=== PATIENT | male | born 1990 | race Caucasian/White ===

== ENCOUNTER 2022-03-31 19:29 | Emergency (ER) | payer OTHER, SELFPAY ==
[2022-03-31 20:12] VITALS: BP 157/103; PULSE 102; RESP 20; TEMP 37; O2SAT 100
--- NOTE | 2022-03-31 21:53 | PC.NURSE ---
Patient called without answer to be placed in room.
== END 2022-03-31 21:55 | disposition left against medical advice (07) ==
LOC: ANHED 22:04
DX: L02.01 Cutaneous abscess of face (principal)
CPT/HCPCS: 99199

== ENCOUNTER 2022-07-07 01:05 | Emergency (ER) | payer OTHER, SELFPAY ==
--- NOTE | ~2022-07-07 | XR_ITS ---
EXAMINATION: XR ankle RT 2V DATE: 07/07/2022 02:37 INDICATION: Right ankle pain and swelling. TECHNIQUE: 2 views of right ankle were obtained. COMPARISON: None. FINDINGS: Bone alignment is normal. No fracture. Joint spaces are well maintained. IMPRESSION: 1. No fracture. Reviewed, dictated and finalized at location A. [facility] IMPRESSION: 1. No fracture.
[2022-07-07 01:13] VITALS: BP 150/103; PULSE 108; RESP 20; TEMP 36.2; O2SAT 99
--- NOTE | 2022-07-07 01:43 | ED.GENADULT ---
HPI - General Adult General Chief complaint: Unspecified Stated complaint: ankle pain Time Seen by Provider: 07/07/22 01:32 History of Present Illness HPI narrative: This is a 31-year-old male with past medical history of methamphetamine abuse, presents emergency department complaining of right ankle pain and swelling and generalized malaise. He states 4 days ago the ankle appeared red and swollen, this is gradually improved to the point that he no longer feels pain in the ankle. He also complains of mild diffuse myalgias associated with some nausea and fatigue. He states he is not vaccinated for influenza or COVID. He has no other complaints today. Related Data Allergies Allergy/AdvReac Type Severity Reaction Status Date / Time No Known Allergies Allergy Verified 03/31/22 20:14 Review of Systems Review of Systems: CONSTITUTIONAL: Chills denies fever, or sweats. EYES: Denies visual changes, redness, or discharge. ENT: Denies rhinorrhea, congestion, sore throat, or otalgia. CARDIOVASCULAR: Denies chest pain, palpitations, or edema. RESPIRATORY: Denies cough or dyspnea. GASTROINTESTINAL: Denies abdominal pain, nausea, vomiting, or diarrhea. GENITOURINARY: Denies dysuria or hematuria. SKIN: Denies rash or itching. MUSCULOSKELETAL: Right ankle pain?resolved, myalgias denies back pain. NEUROLOGIC: Denies headache, numbness, dizziness, or weakness. PSYCHIATRIC: Denies anxiety or depression. PMFSH Past Medical History Medical History (Updated 07/07/22 @ 03:16 by Rubén Connor MD) Amphetamine abuse Social History Social History (Updated 07/07/22 @ 01:45 by Rubén Connor MD) Smoking status: Former smoker Alcohol intake: never Substance use: current Substance use type: methamphetamine Exam Narrative: GENERAL: Well-developed, well-nourished, and in no acute distress. HEAD: Normocephalic, atraumatic. EYES: PERRLA and EOMI. ENT: Nares clear, no rhinorrhea or epistaxis. Mucous membranes moist. Oropharynx without tonsillar hypertrophy exudate or other lesions. NECK: Supple. No adenopathy or masses. No carotid bruits or JVD CHEST: Clear to auscultation. No respiratory distress. No wheezes rales or rhonchi HEART: Regular rate and rhythm. No murmur heard. Normal peripheral pulses. ABDOMEN: Soft, nontender, nondistended, normal active bowel sounds. EXTREMITIES: No noted swelling or erythema, normal range of motion of the bilateral ankles. No edema. SKIN: Warm, dry, no rash. NEURO: No focal deficits. Alert and oriented x3. PSYCH: Normal mood and affect. Course Course Emergency Course: 03:15 - My review of the ankle x-ray is not concerning for fracture or joint effusion. The patient tested negative for influenza and COVID. I suspect another viral cause for her symptoms. Vital signs improved. Discussed findings with the patient and recommendation for follow-up with a primary care doctor. Discussed return emergency precautions including signs/symptoms of respiratory distress. The patient voiced understanding and is comfortable with plan. All questions answered to his satisfaction. Vital Signs Vital signs: Vital Signs Temperature 97.1 F L 07/07/22 01:13 Pulse Rate 108 H 07/07/22 01:13 Respiratory Rate 20 07/07/22 01:13 Blood Pressure 150/103 H 07/07/22 01:13 Pulse Oximetry 99 07/07/22 01:13 Oxygen Delivery Room Air 07/07/22 01:13 Temperature 97.1 F L 07/07/22 01:13 Pulse Rate 97 07/07/22 03:17 Respiratory Rate 15 07/07/22 03:17 Blood Pressure 133/86 07/07/22 03:17 Pulse Oximetry 97 07/07/22 03:17 Oxygen Delivery Room Air 07/07/22 01:13 Medical Decision Making [facility] Narrative Medical decision making narrative: Plan: Labs, imaging, reassess Differential Diagnosis Differential Diagnosis: Arthritis, gout, pseudogout, COVID, influenza, other Vital Signs Vital Signs: Vital Signs Temperature 97.1 F L 07/07/22 01:13 Pulse Rate 108 H 07/07/22 01:13
[2022-07-07 02:59] LABS: Influenza A QL RT-PCR Negative (Negative); Influenza B QL RT-PCR Negative (Negative); SARS-CoV-2 RNA PCR Negative
[2022-07-07 03:17] VITALS: BP 133/86; PULSE 97; RESP 15; O2SAT 97
== END 2022-07-07 03:19 | disposition home or self-care (01) ==
PROVIDERS: Emergency Provider Preventive Medicine Aerospace Medicine
DX: J06.9 Acute upper respiratory infection, unspecified (principal); M79.10 Myalgia, unspecified site; Z20.822 Contact with and (suspected) exposure to COVID-19; Z28.310 Unvaccinated for COVID-19; Z87.891 Personal history of nicotine dependence
CPT/HCPCS: 73600; 87636; 99283